=== PATIENT | male | born 1935 ===

== ENCOUNTER 2022-12-05 08:00 | Inpatient (IN) | payer OTHER ==
[~2022-12-05] VITALS: Ht 162.6 cm; Wt 72.6 kg
[2022-12-05] MEDS ORDERED: AMLODIPI PO (13:59)
[2022-12-11] MEDS ORDERED: COLACE100 MG PO (07:38)
[2022-12-11] MEDS ORDERED: PERCOCET 5-3251 EACH PO (07:39)
[2022-12-11] MEDS ORDERED: MEDROLPACK PO (07:39)
[2022-12-12] MEDS ORDERED: GABAPENTIN400 MG (09:49)
[2022-12-12] MEDS ORDERED: SIMVASTATIN40 MG (09:49)
[2022-12-12] MEDS ORDERED: CARVEDILOL3.125 M1 (09:49)
[2022-12-12] MEDS ORDERED: AMLODIPINE BESYL5 MG (09:49)
== END 2022-12-13 19:01 | DRG 473 ==
LOC: PED 12-11 04:49 → O/R 12-11 04:49 → SURG 12-11 07:00 → PED 12-11 10:25
PROVIDERS: ADMIT Orthopaedic Surgery Orthopaedic Surgery of the Spine; ATTEND Orthopaedic Surgery Orthopaedic Surgery of the Spine
PROC: 0RT30ZZ Resection of Cervical Vertebral Disc, Open Approach (ICD-10-PCS; 2022-12-11)
PROC: 07DS0ZZ Extraction of Vertebral Bone Marrow, Open Approach (ICD-10-PCS; 2022-12-11)
PROC: 0RG20A0 Fusion of 2 or more Cervical Vertebral Joints with Interbody Fusion Device, Anterior Approach, Anterior Column, Open Approach (ICD-10-PCS; principal; 2022-12-11 07:00)
DX: M50.021 Cervical disc disorder at C4-C5 level with myelopathy (principal); M48.02 Spinal stenosis, cervical region; R26.9 Unspecified abnormalities of gait and mobility; I10 Essential (primary) hypertension